=== PATIENT | female | born 1955 | race Two or more races ===

== ENCOUNTER 2017-04-08 06:27 | Outpatient (CLI) | payer OTHER | END 2017-04-08 06:45 | disposition home or self-care (01) | LOC: LAB 06:27 | DX: Z13.29 Encounter for screening for other suspected endocrine disorder (principal) ==

== ENCOUNTER 2017-05-27 09:14 | Outpatient (CLI) | payer OTHER | END 2017-05-27 09:19 | disposition home or self-care (01) | LOC: MAMO-SONO 09:14 | DX: Z12.31 Encounter for screening mammogram for malignant neoplasm of breast (principal) ==

== ENCOUNTER 2017-11-15 18:46 | Emergency (ER) | payer OTHER ==
[~2017-11-15] VITALS: Ht 170.2 cm; Wt 79.4 kg
[2017-11-15] MEDS ORDERED: METFORMIN HCL500 MG (18:59)
[2017-11-15] MEDS ORDERED: LIPITOR20 MG (18:59)
[2017-11-15] MEDS ORDERED: FENOFIBRATE40 MG (18:59)
[2017-11-15] MEDS ORDERED: COZAAR25 MG (18:59)
[2017-11-15] MEDS ORDERED: ZOLOFT25 MG (18:59)
== END 2017-11-15 22:29 | disposition home or self-care (01) ==
LOC: ER 18:46
DX: R41.0 Disorientation, unspecified (principal); F41.8 Other specified anxiety disorders; F32.89 Other specified depressive episodes

== ENCOUNTER → 2017-11-30 06:29 | Outpatient (CLI) | payer OTHER ==
[~2017-11-30 06:29] MED LIST: COZAAR25 MG; FENOFIBRATE40 MG; LIPITOR20 MG; METFORMIN HCL500 MG; ZOLOFT25 MG
== END | disposition home or self-care (01) ==
LOC: LAB 06:29
DX: I10 Essential (primary) hypertension (principal); E08.9 Diabetes mellitus due to underlying condition without complications

== ENCOUNTER 2017-12-07 13:17 | Outpatient (CLI) | payer OTHER | END 2017-12-07 13:37 | disposition home or self-care (01) | LOC: NUCLEAR 13:17 | DX: Z13.820 Encounter for screening for osteoporosis (principal) ==

== ENCOUNTER 2017-12-31 08:37 | Outpatient (CLI) | payer OTHER | END 2017-12-31 08:48 | disposition home or self-care (01) | LOC: RAD 08:37 | DX: R05 Cough (principal) ==

== ENCOUNTER 2018-02-25 07:40 | Outpatient (CLI) | payer OTHER | END 2018-02-25 08:12 | disposition home or self-care (01) | LOC: LAB 07:40 | DX: I10 Essential (primary) hypertension (principal); E08.00 Diabetes mellitus due to underlying condition with hyperosmolarity without nonketotic hyperglycemic-hyperosmolar coma (NKHHC) ==

== ENCOUNTER → 2018-06-02 | Outpatient (CLI) | payer OTHER | END | disposition home or self-care (01) | LOC: MAMO-SONO 07:10 | DX: Z12.31 Encounter for screening mammogram for malignant neoplasm of breast (principal) ==

== ENCOUNTER → 2018-08-04 07:17 | Outpatient (CLI) | payer OTHER | END | disposition home or self-care (01) | LOC: LAB 07:17 | DX: E08.69 Diabetes mellitus due to underlying condition with other specified complication (principal); I10 Essential (primary) hypertension ==

== ENCOUNTER → 2019-01-28 | Outpatient (CLI) | payer OTHER | END | disposition home or self-care (01) | LOC: TOM 07:15 | DX: K76.0 Fatty (change of) liver, not elsewhere classified (principal); K44.9 Diaphragmatic hernia without obstruction or gangrene ==

== ENCOUNTER 2019-07-22 10:45 | Outpatient (CLI) | payer OTHER | END 2019-07-22 11:01 | disposition home or self-care (01) | LOC: MAMO-SONO 10:45 | PROVIDERS: ATTEND Internal Medicine | DX: Z12.31 Encounter for screening mammogram for malignant neoplasm of breast (principal); Z87.898 Personal history of other specified conditions; N63.0 Unspecified lump in unspecified breast ==

== ENCOUNTER 2019-10-04 10:36 | Outpatient (CLI) | payer OTHER | END 2019-10-04 10:47 | disposition home or self-care (01) | LOC: RAD 10:36 | PROVIDERS: ATTEND Internal Medicine | DX: M25.541 Pain in joints of right hand (principal); M25.542 Pain in joints of left hand; M25.572 Pain in left ankle and joints of left foot; M25.571 Pain in right ankle and joints of right foot ==

== ENCOUNTER 2019-11-17 12:08 | Outpatient (CLI) | payer OTHER | END 2019-11-17 16:46 | disposition home or self-care (01) | LOC: RAD 12:08 | PROVIDERS: ATTEND Physical Medicine & Rehabilitation | DX: M17.0 Bilateral primary osteoarthritis of knee (principal) ==

== ENCOUNTER 2020-01-20 10:53 | Outpatient (CLI) | payer OTHER | END 2020-01-20 10:57 | disposition home or self-care (01) | LOC: RAD 10:53 | PROVIDERS: ATTEND Internal Medicine Cardiovascular Disease | DX: I70.0 Atherosclerosis of aorta (principal); I10 Essential (primary) hypertension ==

== ENCOUNTER → 2020-02-02 | Outpatient (CLI) | payer OTHER | END | disposition home or self-care (01) | LOC: OFIC 805 09:15 | PROVIDERS: ATTEND Otolaryngology | DX: H91.8X3 Other specified hearing loss, bilateral (principal) ==

== ENCOUNTER 2020-02-21 11:20 | Outpatient (CLI) | payer OTHER | END 2020-02-21 12:07 | disposition home or self-care (01) | LOC: RAD 11:20 | PROVIDERS: ATTEND Internal Medicine | DX: R07.89 Other chest pain (principal) ==

== ENCOUNTER 2020-03-14 10:22 | Outpatient (CLI) | payer OTHER | END 2020-03-14 10:37 | disposition home or self-care (01) | LOC: RAD 10:22 | PROVIDERS: ATTEND Physical Medicine & Rehabilitation | DX: S93.492A Sprain of other ligament of left ankle, initial encounter (principal); M77.32 Calcaneal spur, left foot; M19.072 Primary osteoarthritis, left ankle and foot ==

== ENCOUNTER 2020-04-18 11:22 | Outpatient (CLI) | payer OTHER | END 2020-04-18 14:41 | disposition home or self-care (01) | LOC: OFIC 805 11:22 | PROVIDERS: ATTEND Otolaryngology | DX: H91.8X3 Other specified hearing loss, bilateral (principal) ==

== ENCOUNTER 2020-05-14 07:21 | Outpatient (CLI) | payer OTHER | END 2020-05-14 10:45 | disposition home or self-care (01) | LOC: NUCLEAR 07:21 | PROVIDERS: ATTEND Internal Medicine | DX: I73.9 Peripheral vascular disease, unspecified (principal); I87.2 Venous insufficiency (chronic) (peripheral) ==

== ENCOUNTER 2020-07-19 13:15 | Outpatient (CLI) | payer OTHER | END 2020-07-19 14:54 | disposition home or self-care (01) | LOC: OFIC 805 13:15 | PROVIDERS: ATTEND Otolaryngology | DX: H91.8X3 Other specified hearing loss, bilateral (principal) ==

== ENCOUNTER 2020-07-24 09:28 | Outpatient (CLI) | payer OTHER | END 2020-07-24 09:46 | disposition home or self-care (01) | LOC: MAMO-SONO 09:28 | PROVIDERS: ATTEND Internal Medicine | DX: N63.0 Unspecified lump in unspecified breast (principal); Z12.31 Encounter for screening mammogram for malignant neoplasm of breast ==

== ENCOUNTER 2020-08-02 13:35 | Outpatient (CLI) | payer OTHER | END 2020-08-02 13:37 | disposition home or self-care (01) | LOC: NUCLEAR 13:35 | PROVIDERS: ATTEND Internal Medicine | DX: M81.0 Age-related osteoporosis without current pathological fracture (principal) ==

== ENCOUNTER 2020-10-03 13:15 | Outpatient (CLI) | payer OTHER | END 2020-10-03 13:19 | disposition home or self-care (01) | LOC: SONOGRAMA 13:15 → MAMO-SONO 13:45 | PROVIDERS: ATTEND Internal Medicine | DX: E07.89 Other specified disorders of thyroid (principal) ==

== ENCOUNTER 2020-10-09 11:36 | Outpatient (CLI) | payer OTHER | END 2020-10-09 11:44 | disposition home or self-care (01) | LOC: SONOGRAMA 11:36 → MAMO-SONO 12:15 | DX: M75.31 Calcific tendinitis of right shoulder (principal); M75.01 Adhesive capsulitis of right shoulder; M75.21 Bicipital tendinitis, right shoulder; M75.41 Impingement syndrome of right shoulder; M75.111 Incomplete rotator cuff tear or rupture of right shoulder, not specified as traumatic; M75.02 Adhesive capsulitis of left shoulder; M75.42 Impingement syndrome of left shoulder; M75.122 Complete rotator cuff tear or rupture of left shoulder, not specified as traumatic; M75.82 Other shoulder lesions, left shoulder; M75.32 Calcific tendinitis of left shoulder ==

== ENCOUNTER 2020-12-19 06:46 | Outpatient (CLI) | payer OTHER | END 2020-12-19 15:00 | disposition home or self-care (01) | LOC: LAB 06:46 | PROVIDERS: ATTEND Orthopaedic Surgery | DX: E83.42 Hypomagnesemia (principal); M85.9 Disorder of bone density and structure, unspecified; E56.1 Deficiency of vitamin K ==

== ENCOUNTER 2021-07-25 07:54 | Outpatient (CLI) | payer OTHER | END 2021-07-25 08:03 | disposition home or self-care (01) | LOC: RAD 07:54 | PROVIDERS: ATTEND Internal Medicine | DX: Z12.31 Encounter for screening mammogram for malignant neoplasm of breast (principal); N63.0 Unspecified lump in unspecified breast; M54.40 Lumbago with sciatica, unspecified side ==

== ENCOUNTER 2021-09-06 08:29 | Outpatient (CLI) | payer OTHER | END 2021-09-06 08:38 | disposition home or self-care (01) | LOC: SONOGRAMA 08:29 | PROVIDERS: ATTEND Internal Medicine Endocrinology, Diabetes & Metabolism | DX: E04.1 Nontoxic single thyroid nodule (principal) ==

== ENCOUNTER 2021-09-26 10:52 | Outpatient (CLI) | payer OTHER | END 2021-09-26 10:54 | disposition home or self-care (01) | LOC: RAD 10:52 | PROVIDERS: ATTEND Internal Medicine Pulmonary Disease | DX: R06.02 Shortness of breath (principal) ==

== ENCOUNTER 2021-10-09 07:09 | Outpatient (CLI) | payer OTHER | END 2021-10-09 07:14 | disposition home or self-care (01) | LOC: EKG 07:09 | PROVIDERS: ATTEND Internal Medicine | DX: I11.9 Hypertensive heart disease without heart failure (principal) ==

== ENCOUNTER 2021-10-31 12:57 | Outpatient (CLI) | payer OTHER | END 2021-10-31 13:04 | disposition home or self-care (01) | LOC: TOM 12:57 | PROVIDERS: ATTEND Internal Medicine Pulmonary Disease | DX: R06.02 Shortness of breath (principal); Z87.891 Personal history of nicotine dependence; E66.01 Morbid (severe) obesity due to excess calories ==

== ENCOUNTER 2022-07-29 08:04 | Outpatient (CLI) | payer OTHER | END 2022-07-29 08:20 | disposition home or self-care (01) | LOC: MAMO-SONO 08:04 | PROVIDERS: ATTEND Internal Medicine | DX: Z12.31 Encounter for screening mammogram for malignant neoplasm of breast (principal); N63.0 Unspecified lump in unspecified breast ==

== ENCOUNTER 2022-08-21 08:47 | Outpatient (CLI) | payer OTHER | END 2022-08-21 08:54 | disposition home or self-care (01) | LOC: NUCLEAR 08:47 | PROVIDERS: ATTEND Internal Medicine | DX: I73.9 Peripheral vascular disease, unspecified (principal) ==

== ENCOUNTER 2022-08-25 09:18 | Outpatient (CLI) | payer OTHER | END 2022-08-25 09:22 | disposition home or self-care (01) | LOC: NUCLEAR 09:18 | PROVIDERS: ATTEND Internal Medicine | DX: M81.0 Age-related osteoporosis without current pathological fracture (principal); I87.2 Venous insufficiency (chronic) (peripheral) ==

== ENCOUNTER 2022-10-28 10:44 | Outpatient (CLI) | payer OTHER | END 2022-10-28 10:49 | disposition home or self-care (01) | LOC: TOM 10:44 | PROVIDERS: ATTEND Internal Medicine Pulmonary Disease | DX: R91.1 Solitary pulmonary nodule (principal); Z87.891 Personal history of nicotine dependence; E66.01 Morbid (severe) obesity due to excess calories ==

== ENCOUNTER 2023-05-11 07:21 | Outpatient (CLI) | payer OTHER | END 2023-05-11 07:22 | disposition home or self-care (01) | LOC: NUCLEAR 07:21 | PROVIDERS: ATTEND Internal Medicine Cardiovascular Disease | DX: I20.9 Angina pectoris, unspecified (principal) | CPT/HCPCS: 78452; 93017; A9500; J0153 ==

== ENCOUNTER 2023-08-19 09:57 | Outpatient (CLI) | payer OTHER | END 2023-08-19 10:04 | disposition home or self-care (01) | LOC: RAD 09:57 | PROVIDERS: ATTEND Internal Medicine | DX: M54.9 Dorsalgia, unspecified (principal) ==

== ENCOUNTER 2023-11-25 09:04 | Outpatient (CLI) | payer OTHER | END 2023-11-25 09:17 | disposition home or self-care (01) | LOC: TOM 09:04 | PROVIDERS: ATTEND Internal Medicine Pulmonary Disease | DX: R91.1 Solitary pulmonary nodule (principal); Z87.891 Personal history of nicotine dependence; E66.01 Morbid (severe) obesity due to excess calories ==

== ENCOUNTER 2023-11-26 09:49 | Outpatient (CLI) | payer OTHER | END 2023-11-26 09:57 | disposition home or self-care (01) | LOC: RAD 09:49 | PROVIDERS: ATTEND Ophthalmology | DX: Z01.811 Encounter for preprocedural respiratory examination (principal) ==

== ENCOUNTER 2023-12-21 13:33 | Outpatient (CLI) | payer OTHER | END 2023-12-21 13:41 | disposition home or self-care (01) | LOC: RAD 13:33 | PROVIDERS: ATTEND Internal Medicine | DX: M25.562 Pain in left knee (principal) ==

== ENCOUNTER 2023-12-29 10:15 | Outpatient (CLI) | payer OTHER | END 2023-12-29 10:20 | disposition home or self-care (01) | LOC: EKG 10:15 | PROVIDERS: ATTEND Ophthalmology | DX: I10 Essential (primary) hypertension (principal) ==

== ENCOUNTER 2024-08-09 07:23 | Outpatient (CLI) | payer OTHER | END 2024-08-09 07:31 | disposition home or self-care (01) | LOC: MAMO-SONO 07:23 | PROVIDERS: ATTEND Internal Medicine | DX: N64.9 Disorder of breast, unspecified (principal); Z12.31 Encounter for screening mammogram for malignant neoplasm of breast ==

== ENCOUNTER 2025-01-24 08:29 | Outpatient (CLI) | payer OTHER | END 2025-01-24 08:30 | disposition home or self-care (01) | LOC: NUCLEAR 08:29 | PROVIDERS: ATTEND Internal Medicine | DX: M81.0 Age-related osteoporosis without current pathological fracture (principal) ==